=== PATIENT | male | born 1950 ===

== ENCOUNTER 2023-07-15 05:50 | Day surgery (SDC) | payer MEDICARE, BC ==
[2023-07-15 06:05] VITALS: BMI 33.4
[2023-07-15] MEDS ORDERED: Nitroglycerin 50 MG/250 ML BOT 250 ML ONE (06:18)
[2023-07-15] MEDS ORDERED: Atropine Sulfate 1 mg/1 ml Vial ONE (06:18)
[2023-07-15] MEDS ORDERED: Heparin 10,000 UNITS/ 10 ML VIAL ONE ×3 (06:18→09:08)
[2023-07-15] MEDS ORDERED: Verapamil 5 MG/2 ML VIAL ONE (06:19)
[2023-07-15] MEDS ORDERED: Adenosine 6 MG/2 ML VIAL ONE (06:19)
[2023-07-15] MEDS ORDERED: Lidocaine 1% (PF) 30 ML VIAL ONE (06:20)
[2023-07-15 06:31] LABS: #Basophils 0.1 10x3/uL (0.0-0.2); #Eosinphils 0.1 10x3/uL (0.0-0.5); #Monocytes 0.7 10x3/uL (0.0-1.1); %Basophils 1.3 % (0.0-2.0); %Eosinophils 1.5 % (0.0-6.0); %Lymphocytes 17.6 % (18.0-47.0); %Monocytes 14.8 % (0.0-10.0); %Neutrophils 64.4 % (40.0-75.0); Hemoglobin 14.7 g/dL (13.5-17.5); Mean Corpuscular HGB CONC 36.8 g/dL (32.0-36.0); Mean Corpuscular Hemoglobin 32.7 pg (27.0-33.0); Mean Corpuscular Volume 88.9 fl (81.2-95.1); Mean Platelet Volume 8.4 fl (7.4-10.4); Platelet Count 212 10x3/uL (150-450); RBC Distribution Width 13.2 % (11.5-14.5); White Blood Cell (WBC) Count 4.6 10x3/uL (3.5-10.5)
[2023-07-15 06:38] VITALS: BP 142/65
[2023-07-15 06:43] LABS: Anion Gap 14 mmol/L (10-20); BUN (Urea Nitrogen) 10 mg/dL (8.4-25.7); Calc. Creatinine Clearance 112 mL/min (70-130); Calcium 9.2 mg/dL (7.8-10.44); Carbon Dioxide 20 mmol/L (23-31); Chloride 94 mmol/L (98-107); Estimated GFR 93; Glucose 104 mg/dL (80-115); Potassium 4.3 mmol/L (3.5-5.1); Sodium 124 mmol/L (136-145)
[2023-07-15 06:49] LABS: PTT 29.9 sec (22.0-33.0); Prothrombin Time 10.8 sec (9.5-12.1)
[2023-07-15] MEDS ORDERED: Midazolam HCl 2 mg/2 ml Vial ONE ×2 (07:28→08:14)
[2023-07-15] MEDS ORDERED: fentaNYL 50 mcg/mL 1 mL Vial ONE ×2 (07:28→08:14)
[2023-07-15] MEDS ORDERED: PHENYLEPHRINE-NS 100 MCG/ML 10 ML SYRINGE ONE (08:18)
[2023-07-15] MEDS ORDERED: Iopamidol 300 61% 100 ML VIAL FS ONE (09:58)
== END 2023-07-15 12:05 | disposition home or self-care (01) ==
LOC: CSHCCL 05:50
PROVIDERS: ATTEND Specialist
PROC: 02703ZZ Dilation of Coronary Artery, One Artery, Percutaneous Approach (ICD-10-PCS; principal; 2023-07-15)
DX: I25.10 Atherosclerotic heart disease of native coronary artery without angina pectoris (principal); E78.5 Hyperlipidemia, unspecified; I10 Essential (primary) hypertension; I25.118 Atherosclerotic heart disease of native coronary artery with other forms of angina pectoris; J45.909 Unspecified asthma, uncomplicated; M10.9 Gout, unspecified; F41.9 Anxiety disorder, unspecified; Z98.890 Other specified postprocedural states; Z88.0 Allergy status to penicillin; Z79.82 Long term (current) use of aspirin; Z79.899 Other long term (current) drug therapy
CPT/HCPCS: 0715T; 71045; 80048; 85025; 85347 ×2; 85610; 85730; 93454; C1761; C1769 ×2; C1874; C1887; C1894; C9600; J3010; 92928; 93005; 93010; 99152; 99153; J0153; J0461; J1644; J2001; J2250; Q9967